=== PATIENT | male | born 1945 | race Caucasian/White ===

== ENCOUNTER → 2018-10-19 | Outpatient (CLI) | payer MEDICARE ==
[~2018-10-19] MED LIST: AMLO-150 PO; CBD PO; COLE625T12 PO; DOXA4TAB3 PO; ESOM20CA PO; IRBE300T16 PO; MELO7.5T31 PO; VITAMIN B12 PO; VITAMIN D3 PO; [UNRECOGNIZED DRUG - OTHER] PO; [UNRECOGNIZED DRUG - OTHER] PO; [UNRECOGNIZED DRUG - OTHER] PO; [UNRECOGNIZED DRUG - OTHER] PO; [UNRECOGNIZED DRUG - OTHER] PO
[2018-10-19 14:51] LABS: ALANINE AMINOTRANSFERASE 24 U/L (12-78); ALBUMIN 3.9 g/dL (3.4-5.0); ANION GAP 6 mmol/L (5-15); CALCIUM 8.9 mg/dL (8.5-10.1); CHLORIDE 110 mmol/L (98-107); CREATININE 1.16 mg/dL (0.7-1.3)
[2018-10-19 14:53] LABS: ALKALINE PHOSPHATASE 83 U/L (45-117); BILIRUBIN,TOTAL 0.6 mg/dL (0.2-1.0); TOTAL PROTEIN 7.3 g/dL (6.4-8.2)
== END | disposition home or self-care (01) ==
LOC: STAR 13:32
PROVIDERS: ATTEND Surgery
DX: Z01.818 Encounter for other preprocedural examination (principal); K40.20 Bilateral inguinal hernia, without obstruction or gangrene, not specified as recurrent
CPT/HCPCS: 36415; 80053; 93005

== ENCOUNTER 2018-10-27 11:36 | Day surgery (SDC) | payer MEDICARE ==
[~2018-10-27] VITALS: Ht 162.6 cm; Wt 82.4 kg
[2018-10-27] MEDS ORDERED: BUPIVACAINE/PF-EPI 0.5% 1:200K ONE (12:12)
[2018-10-27 12:35] VITALS: BP 186/80
[2018-10-27] MEDS ORDERED: LACTATED RINGERS 1,000 ML IV SCH (12:35)
[2018-10-27] MEDS ORDERED: GABAPENTIN 300 MG CAPSULE ONE (12:46)
[2018-10-27] MEDS ORDERED: ACETAMINOPHEN 500 MG TABLET ONE (12:47)
[2018-10-27] MEDS ORDERED: GABAPENTIN 300 MG CAPSULE PO ONE (13:00)
[2018-10-27] MEDS ORDERED: ACETAMINOPHEN 500 MG TABLET PO ONE (13:00)
[2018-10-27] MEDS ORDERED: FENTANYL PF 250 MCG/5ML ONE (13:51)
[2018-10-27] MEDS ORDERED: MIDAZOLAM 1 MG/ML, 2ML ONE (13:51)
[2018-10-27] MEDS ORDERED: ROCURONIUM 10MG/ML,5ML ONE (13:52)
[2018-10-27] MEDS ORDERED: CEFAZOLIN 1,000 MG ONE (13:52)
[2018-10-27] MEDS ORDERED: PROPOFOL 10 MG/ML, 20ML ONE (13:52)
[2018-10-27] MEDS ORDERED: GLYCOPYRROLATE 0.2MG/1ML, 5ML ONE (13:52)
[2018-10-27] MEDS ORDERED: NEOSTIGMINE 1 MG/ML, 10ML ONE (13:52)
[2018-10-27] MEDS ORDERED: PHENYLEPHRINE 10 MG/ML ONE (14:12)
[2018-10-27] MEDS ORDERED: PROMETHAZINE 25 MG/ML, 1ML IM PRN ×2 (14:30)
[2018-10-27] MEDS ORDERED: OXYcodone 5 MG/5 ML ORAL.SOL UDC PO PRN (14:30)
[2018-10-27] MEDS ORDERED: ONDANSETRON ODT 8 MG PO PRN (14:30)
[2018-10-27] MEDS ORDERED: MEPERIDINE/PF 25MG/0.5ML IVPush PRN (14:30)
[2018-10-27] MEDS ORDERED: HYDROmorphone 2 MG/ML, 1ML IVPush PRN (14:30)
[2018-10-27] MEDS ORDERED: PROMETHAZINE 25 MG/ML, 1ML IV PRN (14:30)
[2018-10-27] MEDS ORDERED: hydrALAzine 20 MG/ML, 1ML IV PRN (14:30)
[2018-10-27] MEDS ORDERED: MORPHINE SULFATE 4 MG/ML, 1ML IVPush PRN (14:30)
[2018-10-27] MEDS ORDERED: LABETALOL 5MG/ML, 20ML IV PRN (14:30)
[2018-10-27] MEDS ORDERED: ONDANSETRON 2MG/ML, 2ML IV PRN (14:30)
[2018-10-27] MEDS ORDERED: FENTANYL PF 100 MCG/2ML IV PRN (14:30)
[2018-10-27] MEDS ORDERED: PROMETHAZINE 12.5 MG SUPP PR PRN (14:30)
[2018-10-27] MEDS ORDERED: PROMETHAZINE 25 MG SUPP PR PRN (14:30)
[2018-10-27] MEDS ORDERED: MEPERIDINE/PF 25MG/ML,1ML ONE (16:03)
[2018-10-27] MEDS ORDERED: GLYCOPYRROLATE 0.4 MG/2 ML, 2ML ONE (16:18)
[2018-10-27] MEDS ORDERED: OXYcodone 5 MG/5 ML ORAL.SOL UDC ONE (16:25)
[2018-10-27] MEDS ORDERED: GLYCOPYRROLATE 0.2MG/1ML, 5ML IVPush PRN (16:30)
== END 2018-10-27 18:05 | disposition home or self-care (01) ==
LOC: OUT 11:36
PROVIDERS: ATTEND Surgery
DX: K40.20 Bilateral inguinal hernia, without obstruction or gangrene, not specified as recurrent (principal); I10 Essential (primary) hypertension; E78.5 Hyperlipidemia, unspecified; K21.9 Gastro-esophageal reflux disease without esophagitis; Z98.41 Cataract extraction status, right eye; Z98.890 Other specified postprocedural states; Z87.891 Personal history of nicotine dependence; Z72.89 Other problems related to lifestyle; Z96.1 Presence of intraocular lens; Z88.1 Allergy status to other antibiotic agents; Z88.8 Allergy status to other drugs, medicaments and biological substances
CPT/HCPCS: 49650; C1781; J0690; J2175; J2250; J2370; J2704; J2710; J3010; J7120